=== PATIENT | female | born 2000 | race American Indian/Alaskan Native ===

== ENCOUNTER 2022-02-21 01:54 | Emergency (ER) | payer OTHER ==
[~2022-02-21] VITALS: Ht 162.6 cm; Wt 68.0 kg
[2022-02-21] MEDS ORDERED: LORazepam 2MG/ML-1ML VIAL IV ONE (02:40)
[2022-02-21] MEDS ORDERED: KETAMINE 50mg/ML 10ml Vial (500mg/10ml) IV ONE (02:45)
[2022-02-21] MEDS ORDERED: LORazepam 2MG/ML-1ML VIAL ONE ×2 (02:47→07:16)
[2022-02-21 02:57] LABS: Basophils # (auto) 0.1 10 ^3/uL (0-0.2); Eosinophils # (auto) 0 10 ^3/uL (0-0.8); Eosinophils % (auto) 0.2 % (0.0-7.0); Hematocrit 29.9 % (36.0-46.0); Lymphocytes # (auto) 0.9 10 ^3/uL (0.4-5.4); Monocytes # (auto) 0.6 10 ^3/uL (0-1.3); Nucleated Red Blood Cells % 0.1 %; White Blood Cell 6.7 10^3/uL (4.4-10.8)
[2022-02-21 03:00] LABS: Basophils % (auto) 1.2 % (0.0-2.0); Hemoglobin 9.4 g/dL (12.2-16.2); Lymphocytes % (auto) 13.9 % (10.0-50.0); Mean Corpuscular Hemoglobin 19.5 pg (28.0-32.0); Mean Corpuscular Hgb Conc. 31.4 g/dL (32.0-36.0); Mean Corpuscular Volume 62.3 fL (80.0-100.0); Monocytes % (auto) 9.1 % (0.0-12.0); Neutrophils # (auto) 5.1 10 ^3/uL (1.6-8.6); Neutrophils % (auto) 75.6 % (37.0-80.0)
[2022-02-21 03:16] LABS: Albumin 3.7 g/dL (3.4-5.0); Anion Gap 8 (5-15); Blood Urea Nitrogen 8 mg/dL (7-18); Calcium 8.5 mg/dL (8.5-10.1); Carbon Dioxide 24 mmol/L (21-32); Chloride 108 mmol/L (98-107); Glucose 111 mg/dL (74-106); Sodium 140 mmol/L (136-145)
[2022-02-21 03:19] LABS: Red Cell Distribution Width 22.2 % (11.8-14.3)
[2022-02-21 03:21] LABS: Alanine Aminotransferase 34 U/L (13-56); Alkaline Phosphatase 75 U/L (45-117); Aspartate Aminotransferase 23 U/L (15-37); BUN/Creatinine Ratio 10.3; Bilirubin, Total 0.7 mg/dL (0.2-1.0); Blood Alcohol < 3.0 mg/dL (0-5); GFR African American 121 mL/min; GFR Non-African American 100 mL/min; Total Protein 7.4 g/dL (6.4-8.2)
[2022-02-21 03:25] LABS: Beta HCG, Quantitative < 1 mlU/mL (1-3)
[2022-02-21 03:26] LABS: Potassium 2.8 mmol/L (3.5-5.1)
[2022-02-21] MEDS ORDERED: POTASSIUM CHL 20MEQ/100ML 100 ML IV ONE (04:00)
[2022-02-21] MEDS ORDERED: POTASSIUM CHL 20 Meq TABLET PO ONE (04:00)
[2022-02-21 05:12] LABS: Amphetamine Screen, Urine NEGATIVE (NEGATIVE); Barbiturate Scree,Urine NEGATIVE (NEGATIVE); Benzodiazephine Screen, Urine NEGATIVE (NEGATIVE); Cannabinoid Screen, Urine POSITIVE (NEGATIVE); Cocaine Screen, Urine NEGATIVE (NEGATIVE); Opiate Scree,Urine NEGATIVE (NEGATIVE); Phencyclidine Screen, Urine NEGATIVE (NEGATIVE)
[2022-02-21] MEDS ORDERED: LORazepam 2MG/ML-1ML VIAL IM ONE (07:15)
[2022-02-21] MEDS ORDERED: LORazepam 0.5 MG TAB PO ONE (10:45)
[2022-02-21 16:55] LABS: Albumin 3.9 g/dL (3.4-5.0); BUN/Creatinine Ratio 8.5; Bilirubin, Total 0.6 mg/dL (0.2-1.0); Calcium 8.8 mg/dL (8.5-10.1); Potassium 3.4 mmol/L (3.5-5.1); Total Protein 7.9 g/dL (6.4-8.2)
[2022-02-21] MEDS ORDERED: OLANZapine 5 MG TAB PO SCH (22:00)
[2022-02-21] MEDS ORDERED: LORazepam 0.5 MG TAB PO SCH (22:00)
[2022-02-22 07:07] VITALS: BP 126/76
== END 2022-02-22 07:26 ==
LOC: EDBD 01:54 → ER 01:54 → EEVIPCON 01:54 → ER 02-22 07:26
DX: F20.9 Schizophrenia, unspecified (principal); D50.9 Iron deficiency anemia, unspecified; E87.6 Hypokalemia; Z20.822 Contact with and (suspected) exposure to COVID-19
CPT/HCPCS: 36415; 70450; 80053; 80307; 80320; 84443; 84702; 85025; 87426; 96365; 96366; 96372; 96375; 99285; J2060; J3480

== ENCOUNTER 2022-07-09 22:29 | Emergency (ER) | payer OTHER ==
[~2022-07-09] VITALS: Ht 167.6 cm; Wt 74.0 kg
== END 2022-07-09 23:52 ==
LOC: ER 22:30
DX: Z04.1 Encounter for examination and observation following transport accident (principal); V49.49XA Driver injured in collision with other motor vehicles in traffic accident, initial encounter; Y93.89 Activity, other specified; Y92.89 Other specified places as the place of occurrence of the external cause; Y99.8 Other external cause status